=== PATIENT | female | born 1955 | race Caucasian/White ===

== ENCOUNTER 2016-08-26 07:58 | Emergency (ER) | payer OTHER ==
[2016-08-26 08:18] VITALS: BP 150/82; PULSE 57; RESP 18; TEMP 98.2; O2SAT 94
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
== END 2016-08-26 09:02 | disposition home or self-care (01) ==
LOC: CED 07:58
DX: S40.871A Other superficial bite of right upper arm, initial encounter (principal); S40.872A Other superficial bite of left upper arm, initial encounter; S20.9 Superficial injury of unspecified parts of thorax; S00.571A Other superficial bite of lip, initial encounter; S00.87XA Other superficial bite of other part of head, initial encounter; W57.XXXA Bitten or stung by nonvenomous insect and other nonvenomous arthropods, initial encounter; Y92.59 Other trade areas as the place of occurrence of the external cause
CPT/HCPCS: 99214-PO; G0463-PO

== ENCOUNTER → 2017-01-01 | Outpatient (CLI) | payer OTHER | LOC: FIMAGING 12:20 | PROVIDERS: ATTEND Internal Medicine | DX: Z12.31 Encounter for screening mammogram for malignant neoplasm of breast (principal) | CPT/HCPCS: G0202 ==